=== PATIENT | female | born 1955 ===

== ENCOUNTER 2016-07-13 22:23 | Emergency (ER) | payer OTHER ==
--- NOTE | 2016-07-14 00:54 | ED INFLUENZA/URI COMPLAINT ---
History of Present Illness General Chief Complaint: General Adult Stated Complaint: FEVER/COUGH Source: family Exam Limitations: language barrier Vital Signs & Intake/Output Vital Signs & Intake/Output ED Intake and Output 07/15 0000 07/14 1200 Intake Total 0 Output Total Balance 0 Intake, Oral 0 Allergies Coded Allergies: UNOBTAINABLE (07/14/16) Reconcile Medications Albuterol Sulfate (Ventolin Hfa) 90 MCG HFA.AER.AD 2 PUF INH Q4-6 PRN PRN SHORTNESS OF BREATH Azithromycin (Zithromax) 500 MG TABLET 1 TAB PO DAILY BRONCHITIS Benzonatate (Tessalon Perle) 100 MG CAPSULE 1 CAP PO TID PRN COUGH Methylprednisolone. (Medrol) 4 MG TAB.DS.PK 1 DP PO AD INFLAMMATION 6 on day 1 then reduce by one tablet daily until gone Mometasone Furoate (Nasonex) 50 MCG SPRAY.PUMP 2 SPRAY NASB DAILY CONGESTION Robitussin AC (Guaifenesin-Codeine Syrup) 200 MG-20 MG/10 ML LIQUID 10 ML PO TID PRN COUGH Triage Note: FEVER AND COUGH FOR PAST 3-4 DAYS Triage Nurses Notes Reviewed? yes Onset: Gradual Duration: constant Timing: recent history Severity: severe Severity Numbers: 7 HPI: Patient is a 61-year-old female with past medical history of hypertension who presents to emergency with a 4-5 day history of body aches fevers chills nonproductive cough headaches nasal congestion sore throat and pleuritic burning chest pain upon coughing. Patient has been taking Tylenol with relief of fevers. Positive sick contacts at home. Denies any neck pain neck stiffness History is limited due to language barrier however son is here to translate (ZION GARCIA) Past History Travel History Traveled to [place] past 21 day No Medical History Any Pertinent Medical History? none Surgical History Surgical History: non-contributory Family History Hx Contributory? No (ZION GARCIA) Review of Systems Review of Systems Constitutional: Reports: see HPI, chills, fever. EENTM: Reports: nasal congestion, throat pain. Respiratory: Reports: see HPI, cough. Cardiovascular: Reports: see HPI. GI: Reports: no symptoms. Genitourinary: Reports: no symptoms. Musculoskeletal: Reports: see HPI, joint pain, muscle pain. Skin: Reports: no symptoms. Neurological/Psychological: Reports: see HPI, headache. Hematologic/Endocrine: Reports: no symptoms. Immunologic/Allergic: Reports: no symptoms. All Other Systems: Reviewed and Negative (ZION GARCIA) Physical Exam Physical Exam General Appearance: no apparent distress, alert Ears, Nose, Throat: moist mucous membrane, hearing grossly normal, Tympanic normal, pharynx normal, nasal congestion Comments: Well-developed well-nourished person in no acute distress HEENT: extraocular motion intact, no nystagmus. Pupils equally round and reactive to light and accommodation. Nose is atraumatic. External auditory canal and Tympanic membranes clear. Pharynx normal. No swelling or edema. Nasal congestion noted, no sinus tenderness noted Neck: Supple, no lymphadenopathy, normal range of motion without pain or tenderness Back: Nontender, no CVA tenderness. Cardiovascular: Regular rate and rhythms no murmurs rubs or gallops, normal JVP Respiratory: Chest nontender. No respiratory distress.breath sounds clear to auscultation bilaterally Abdomen: Soft, nontender nondistended, no appreciable organomegaly. Normal bowel sounds. No ascites Extremity: No edema, no calf tenderness to palpation, normal and equal pulses. Neuro: Alert oriented x3, motor sensory normal, Skin: No appreciable rash on exposed skin, skin is warm and dry. Psych: Mood and affect is normal, memory and judgment is normal. Core Measures Severe Sepsis Present: No Septic Shock Present: No (ZION GARCIA) Progress Differential Diagnosis: influenza, meningitis, neutropenia, otitis, pneumonia, pharyngitis, sinusitis Plan of Care: Patient had clear lungs auscultation Afebrile nontoxic appearing Patient will be treated for concerns of bronchitis. Upon discharge patient looks well and will comply with discharge instructions and had no questions Initial ED EKG: none (ZION GARCIA) Departure Departure Disposition: HOME OR SELF CARE Condition: Stable Clinical Impression Primary Impression: Upper respiratory disease Secondary Impressions: Bronchitis Referrals: FERMIN LANDERS MD (PCP/Family) Additional Instructions: As discussed continue [id number] Tylenol for future fevers. begin Over- the-counter Mucinex for congestion and Sudafed for congestion. Begin the prescription of Tessalon Perles and Robitussin with codeine for cough, Medrol Dosepak for inflammation, Ventolin for shortness of breath, and nasonex for congestion. Begin the prescription of azithromycin as directed for full course. If no better on Friday follow up with primary care doctor. Prescriptions waiting a [facility] pharmacy. If symptoms worsen return to emergency room Departure Forms: Customer Survey General Discharge Information Prescriptions: Current Visit Scripts Benzonatate (Tessalon Perle) 1 CAP PO TID PRN COUGH #21 CAP Robitussin AC (Guaifenesin-Codeine Syrup) 10 ML PO TID PRN COUGH #100 ML Methylprednisolone. (Medrol) 1 DP PO AD #1 DP 6 on day 1 then reduce by one tablet daily until gone Azithromycin (Zithromax) 1 TAB PO DAILY #5 TAB Albuterol Sulfate (Ventolin Hfa) 2 PUF INH Q4-6 PRN PRN SHORTNESS OF BREATH #1 INHAL Mometasone Furoate (Nasonex) 2 SPRAY NASB DAILY #1 INHAL (ZION GARCIA) PA/PRESCHOOL ASSISTANT TEACHER Co-Sign Statement Statement: ED Attending supervision documentation- [X] I saw and evaluated the patient. I have also reviewed all the pertinent lab results and diagnostic results. I agree with the findings and the plan of care as documented in the PA's/PRESCHOOL ASSISTANT TEACHER's documentation. [X] I have reviewed the ED Record and agree with the PA's/PRESCHOOL ASSISTANT TEACHER's documentation. [] Additions or exceptions (if any) to the PAs/PRESCHOOL ASSISTANT TEACHER's note and plan are summarized below: [] (ARTURO QUIROZ,JOHN Sanchez)
[2016-07-14] MEDS ORDERED: GUAIFENESIN-COD10 ML PO (01:04)
[2016-07-14] MEDS ORDERED: MEDROL4 M2 PO (01:04)
[2016-07-14] MEDS ORDERED: TESSALON PERLE100 M1 PO (01:04)
[2016-07-14] MEDS ORDERED: ZITHROMAX500 M2 PO (01:04)
[2016-07-14] MEDS ORDERED: NASONEX17 GM NASB (01:04)
[2016-07-14] MEDS ORDERED: VENTOLIN HFA18 GM INH (01:04)
[2016-07-14 01:10] VITALS: BP 148/90
== END 2016-07-14 01:10 ==
LOC: ERH 22:23
DX: J40 Bronchitis, not specified as acute or chronic (principal); J39.9 Disease of upper respiratory tract, unspecified; R07.89 Other chest pain